=== PATIENT | male | born 1975 | race African-American/Black ===

== ENCOUNTER 2021-05-04 02:49 | Emergency (ER) | payer SELFPAY ==
[~2021-05-04] VITALS: Ht 165.1 cm; Wt 71.0 kg
[2021-05-04] MEDS ORDERED: HALOPERIDOL LACTATE 5MG/ML VIAL IM STA (02:59)
[2021-05-04] MEDS ORDERED: LORAZEPAM 2MG/ML CPJ IM STA (02:59)
[2021-05-04] MEDS ORDERED: DIPHENHYDRAMINE 50MG/ML VIAL IM STA (02:59)
[2021-05-04 03:35] LABS: BASOPHILS % 0.2 % (0.0-2.0); EOSINOPHILS % 1.1 % (0.0-5.0); HEMATOCRIT. 35.2 % (42.0-52.0); HEMOGLOBIN. 11.9 g/dL (14.0-18.0); LYMPHOCYTES % 25.8 % (20.0-50.0); MEAN CORPUSCULAR HEMOGLOBIN 29.9 pg (28.0-32.0); MEAN CORPUSCULAR VOLUME 88.7 fL (80.0-94.0); MEAN PLATELET VOLUME 8.4 fl (7.4-10.4); MONOCYTES % 9.2 % (2.0-8.0); NEUTROPHILS % 63.7 % (40.0-76.0); PLATELET 237 x1000/uL (130-400); RED BLOOD CELL COUNT 3.97 mill/uL (4.7-6.1); RED CELL DISTRIBUTION WIDTH 14.2 % (11.6-14.6)
[2021-05-04 03:41] LABS: CHLORIDE 108 mEq/L (98-107)
[2021-05-04 03:45] LABS: ETHANOL BLOOD 90 mg/dL
[2021-05-04 04:37] LABS: CLARITY URINE CLEAR (CLEAR); COLOR URINE YELLOW (YELLOW); KETONES URINE TRACE (NEGATIVE); LEUKOCYTE ESTERASE URINE NEGATIVE (NEGATIVE); NITRITE URINE NEGATIVE (NEGATIVE); OCCULT BLOOD URINE NEGATIVE (NEGATIVE); PH URINE 5.5 (4.5-8.0); PROTEIN URINE 1+ (NEGATIVE); SPECIFIC GRAVITY URINE 1.029 (1.005-1.030)
[2021-05-04 05:00] LABS: *BENZODIAZEPINES SCREEN URINE NEGATIVE (NEGATIVE); *COCAINE SCREEN URINE NEGATIVE (NEGATIVE)
[2021-05-04 05:01] LABS: *AMPHETAMINES SCREEN URINE NEGATIVE (NEGATIVE); *BARBITURATES SCREEN URINE NEGATIVE (NEGATIVE); CANNABINOID URINE SCREEN PRESUMTIVE POSITIVE (NEGATIVE); METHADONE URINE SCREEN NEGATIVE (NEGATIVE); OPIATES URINE SCREEN NEGATIVE (NEGATIVE); PHENCYCLIDINE URINE SCREEN PRESUMTIVE POSITIVE (NEGATIVE)
[2021-05-04] MEDS ORDERED: AMOX-424 MT (06:11)
[2021-05-04] MEDS: AMPICILLIN SOD/SULBACTAM NA 3 G in SODIUM CHLORIDE 0.9% 100 ML IV SCH ×2 (07:00→12:15)
[2021-05-04 14:43] VITALS: BP 122/78
== END 2021-05-04 14:57 | disposition home or self-care (01) ==
LOC: ER 03:23 → EDBD 03:23 → ER 14:57
DX: R45.1 Restlessness and agitation (principal); R41.82 Altered mental status, unspecified; T40.995A Adverse effect of other psychodysleptics [hallucinogens], initial encounter; F19.10 Other psychoactive substance abuse, uncomplicated; R00.0 Tachycardia, unspecified; Y92.89 Other specified places as the place of occurrence of the external cause
CPT/HCPCS: 36415; 70450; 80053; 80305; 80320; 81003; 85025; 93005; 96365; 96366; 96372; 99291; J0295; J1200; J1630; J2060; J7050; 99285; G0480

== ENCOUNTER 2021-06-16 15:14 | Emergency (ER) | payer SELFPAY ==
[~2021-06-16] VITALS: Ht 175.3 cm; Wt 75.0 kg
[~2021-06-16 15:14] MED LIST: AMOX-424 MT
[2021-06-16 16:13] LABS: CLARITY URINE CLEAR (CLEAR); COLOR URINE YELLOW (YELLOW); KETONES URINE NEGATIVE (NEGATIVE); LEUKOCYTE ESTERASE URINE NEGATIVE (NEGATIVE); NITRITE URINE NEGATIVE (NEGATIVE); OCCULT BLOOD URINE NEGATIVE (NEGATIVE); PH URINE 5.5 (4.5-8.0); PROTEIN URINE NEGATIVE (NEGATIVE); SPECIFIC GRAVITY URINE 1.007 (1.005-1.030); UROBILINOGEN URINE 0.2 E.U./dL (0.2-1.0)
[2021-06-16 16:29] LABS: *AMPHETAMINES SCREEN URINE NEGATIVE (NEGATIVE); *BARBITURATES SCREEN URINE NEGATIVE (NEGATIVE); *BENZODIAZEPINES SCREEN URINE NEGATIVE (NEGATIVE)
[2021-06-16 16:30] LABS: *COCAINE SCREEN URINE NEGATIVE (NEGATIVE); CANNABINOID URINE SCREEN PRESUMTIVE POSITIVE (NEGATIVE); METHADONE URINE SCREEN NEGATIVE (NEGATIVE); OPIATES URINE SCREEN NEGATIVE (NEGATIVE); PHENCYCLIDINE URINE SCREEN PRESUMTIVE POSITIVE (NEGATIVE)
[2021-06-16 19:50] VITALS: BP 124/62
== END 2021-06-16 19:53 | disposition home or self-care (01) ==
LOC: ER 15:14
DX: T40.991A Poisoning by other psychodysleptics [hallucinogens], accidental (unintentional), initial encounter (principal); Y92.488 Other paved roadways as the place of occurrence of the external cause
CPT/HCPCS: 80305; 81003; 99285

== ENCOUNTER 2021-07-15 01:52 | Emergency (ER) | payer SELFPAY ==
[~2021-07-15] VITALS: Ht 177.8 cm; Wt 68.0 kg
[2021-07-15 02:17] VITALS: BP 110/61
[2021-07-15] MEDS ORDERED: SERT100T MT (06:01)
[2021-07-15] MEDS ORDERED: RISP2 MT (06:01)
== END 2021-07-15 06:55 | disposition home or self-care (01) ==
LOC: ER 01:52
DX: S02.609A Fracture of mandible, unspecified, initial encounter for closed fracture (principal); F16.10 Hallucinogen abuse, uncomplicated; Z76.0 Encounter for issue of repeat prescription; Z86.59 Personal history of other mental and behavioral disorders; Y04.0XXA Assault by unarmed brawl or fight, initial encounter; Y93.89 Activity, other specified; Y92.89 Other specified places as the place of occurrence of the external cause; Y99.8 Other external cause status
CPT/HCPCS: 99283; A4217

== ENCOUNTER 2022-06-15 13:41 | Emergency (ER) | payer MEDICAID ==
[~2022-06-15] VITALS: Ht 177.8 cm; Wt 77.0 kg
[~2022-06-15 13:41] MED LIST changes: +RISP2 MT; +SERT100T MT
[2022-06-16 01:11] VITALS: BP 118/70
== END 2022-06-16 02:29 | disposition home or self-care (01) ==
LOC: ER 13:41
DX: F10.129 Alcohol abuse with intoxication, unspecified (principal); F31.9 Bipolar disorder, unspecified; F20.9 Schizophrenia, unspecified
CPT/HCPCS: 99283